=== PATIENT | male | born 1980 | race Caucasian/White ===

== ENCOUNTER 2021-07-08 04:53 | Emergency (ER) | payer OTHER ==
[2021-07-08] MEDS ORDERED: CILOXAN 0.3% O2.5 ML OD (05:49)
[2021-07-08] MEDS ORDERED: LODINE CAP 300300 MG PO (05:49)
== END 2021-07-08 06:38 | disposition home or self-care (01) ==
LOC: ER1 04:53
DX: T15.11XA Foreign body in conjunctival sac, right eye, initial encounter (principal); F17.210 Nicotine dependence, cigarettes, uncomplicated; W22.8XXA Striking against or struck by other objects, initial encounter; Z23 Encounter for immunization
CPT/HCPCS: 65205; 90471; 90715; 99283